=== PATIENT | male | born 1995 | race Caucasian/White ===

== ENCOUNTER 2020-01-20 18:26 | Emergency (ER) | payer BC ==
[~2020-01-20] VITALS: Ht 195.6 cm; Wt 135.6 kg
[2020-01-20 19:54] LABS: CREATININE 0.7 mg/dL (0.7-1.3)
[2020-01-20 19:56] LABS: POTASSIUM 4.3 mmol/L (3.5-5.1)
[2020-01-20 20:02] LABS: TROPONIN-I 0.12 ng/mL (<0.06)
[2020-01-20 20:23] LABS: HEMATOCRIT 44.1 % (42.0-52.0); HEMOGLOBIN 15.1 gm/dL (14.0-18.0); MCH 28.5 pg (26.0-34.0); MCHC 34.2 g/dL (28.0-37.0); MCV 83.2 fL (80.0-100.0); RBC 5.3 mil/uL (4.50-6.00); RDW 13.5 % (10.5-14.5); WBC 6.6 thou/uL (4.0-11.0)
[2020-01-20 20:42] LABS: TROPONIN-I <0.06 ng/mL (<0.06)
[2020-01-20 22:34] VITALS: BP 115/70
--- NOTE | 2020-01-21 08:10 | EKG ---
[facility] [place] [address] ELECTROCARDIOGRAM REPORT Name: SHERINE HUBBARD Room #: DEP [facility].#: [id number] Admission: 01/20/20 Attend Phys: Discharge: 01/20/20 Date of : [birth year] Report #: [id number] THIS REPORT FOR: cc: TAMAR - Bernadine family physician/PCP TAMAR - No family physician/PCP Austin Rosenbaum MD [facility] THIS REPORT FOR: //name// [facility] ED Test Date: 2020-01-20 Test Time: 19:07:09 Pat Name: SHERINE HUBBARD Department: Room: Gender: On Call: [facility] : 1995 Requested By: Patricio Godwin Order Number: [id number] MD: Austin Rosenbaum Measurements Intervals [place] Rate: 62 P: 16 VT: 183 QRS: 16 QRSD: 97 T: 9 QT: 407 QTc: 414 Interpretive Statements Sinus rhythm Borderline T wave abnormalities No previous ECG available for comparison Electronically Signed On 01-21-2020 8:09:33 CDT by Austin Rosenbaum [email or web address] <ELECTRONICALLY SIGNED> By: Austin Rosenbaum MD, [facility] 01/21/20 0809 06 06 Austin Rosenbaum MD, [facility] /EPI
== END 2020-01-20 22:37 | disposition home or self-care (01) ==
LOC: ER 18:26
PROVIDERS: Physician Assistant
DX: R07.89 Other chest pain (principal); R07.81 Pleurodynia; Z88.1 Allergy status to other antibiotic agents